=== PATIENT | male | born 1955 | race Caucasian/White ===

== ENCOUNTER 2022-04-27 00:07 | Emergency (ER) | payer OTHER ==
[~2022-04-27] VITALS: Ht 175.3 cm; Wt 95.3 kg
--- NOTE | 2022-04-27 00:19 | NUR ---
Pt sent by PMD for insertion of carrillo catheter prior to prostate surgery "at the end of the month" per patient. Pt states he has had intermittent fevers, body aches, and chills. Normal skin color for ethnicity. Respirations even and unlabored. Pt states he only dribbles during urination.
[2022-04-27 00:21] VITALS: BP_SYST 145
[2022-04-27] MEDS ORDERED: ACETAMINOPHEN 325 MG TABLET PO ONE (00:30)
[2022-04-27 01:59] LABS: CALCIUM 9.3 mg/dL (8.4-11.0); CREATININE 1.24 mg/dL (0.55-1.30); POTASSIUM 3.7 mmol/L (3.5-5.1)
[2022-04-27 02:00] LABS: BASOPHILS # (AUTO) 0.1 K/uL (0.0-0.2); BASOPHILS % (AUTO) 0.6 % (0.0-2.0); EOSINOPHILS # (AUTO) 0.1 K/uL (0.0-0.4); EOSINOPHILS % (AUTO) 0.5 % (0.0-4.0); HEMATOCRIT 43.8 % (36-54); HEMOGLOBIN 15.6 g/dL (14.0-18.0); LYMPHOCYTES % (AUTO) 7.2 % (20.5-51.5); MEAN CORPUSCULAR HEMOGLOBIN 31 pg (27-31); MEAN CORPUSCULAR HGB CONC 36 % (32-36); MEAN CORPUSCULAR VOLUME 88 fL (79.0-98.0); MONOCYTES % (AUTO) 7.4 % (1.7-9.3); NEUTROPHILS # (AUTO) 11.6 K/uL (1.8-7.7); NEUTROPHILS % (AUTO) 84.3 % (40.0-70.0); PLATELET COUNT (AUTO) 323 K/uL (130-430); RED BLOOD CELL COUNT(AUTO) 4.97 MIL/uL (4.2-6.2); WHITE BLOOD COUNT (AUTO) 13.8 K/uL (4.8-10.8)
[2022-04-27 02:05] LABS: ALBUMIN 3.9 g/dL (3.4-4.8); TOTAL BILIRUBIN 2.1 mg/dL (0.0-1.0)
--- NOTE | 2022-04-27 03:30 | NUR ---
Urine sample walked to lab at this time
--- NOTE | 2022-04-27 03:35 | NUR ---
# 16 FR Pen[place] catheter with use of sterile technique. Immediate return of 200 cc pinkish urine noted. Bedside drainage bag placed below level of bladder. Urine sample collected and sent to lab. Pt tolerated procedure well. Leg bag placed on patient at this time.
[2022-04-27 03:57] LABS: BILIRUBIN,URINE NEGATIVE (NEGATIVE); BLOOD, URINE 3+ (NEGATIVE); CLARITY/URINE CLOUDY (CLEAR); COLOR,URINE RED (YELLOW); GLUCOSE,URINE NEGATIVE (NEGATIVE); KETONES,URINE NEGATIVE (NEGATIVE); LEUKOCYTE ESTERASE ,URINE 3+ (NEGATIVE); NITRITE, URINE POSITIVE (NEGATIVE); PH,URINE 6.5 (5.0-8.0); PROTEIN URINE 2+ (NEGATIVE)
--- NOTE | 2022-04-27 04:02 | NUR ---
Patient updated on plan of care and pending required urinalysis to determine source of infection.
[2022-04-27 04:17] LABS: BACTERIA,URINE MANY /HPF (None Seen); RBC,URINE >100 /HPF (0-3); WBC,URINE 20-50 /HPF (0-3)
--- NOTE | 2022-04-27 04:42 | NUR ---
Pt to bed 6 at this time. made aware.
--- NOTE | 2022-04-27 05:13 | NUR ---
MD at bedside updating pt on plan of care.
--- NOTE | 2022-04-27 05:15 | NUR ---
Report given to VIANEY Melendez at this time.
[2022-04-27] MEDS ORDERED: cefTRIAXone 1 GM VIAL ONE (05:29)
[2022-04-27] MEDS ORDERED: cefTRIAXone 1 GM VIAL IM ONE (05:30)
[2022-04-27] MEDS ORDERED: NITR-85 PO (05:39)
[2022-04-27] MEDS ORDERED: CEPH250C PO (05:39)
[2022-04-27 05:53] VITALS: BP_SYST 133
--- NOTE | 2022-04-27 05:57 | NUR ---
Patient given written and verbal discharge instructions and verbalizes understanding. PASTOR BELTRAN MD discussed with patient the results and treatment provided. Patient in stable condition. Rx of given. Patient educated on pain management and to follow up with PMD. Pain Scale . Opportunity for questions provided and answered. Medication side effect fact sheet provided.
== END 2022-04-27 05:57 | disposition home or self-care (01) ==
LOC: SED 00:07
DX: N12 Tubulo-interstitial nephritis, not specified as acute or chronic (principal); R50.9 Fever, unspecified; R30.0 Dysuria; R03.0 Elevated blood-pressure reading, without diagnosis of hypertension; Z79.899 Other long term (current) drug therapy
CPT/HCPCS: 99284; 71045; 80053; 81000; 85025; 87040; 87086; 36415; 96372; 83605; 51702; J0696